=== PATIENT | male | born 1960 | race Caucasian/White ===

== ENCOUNTER 2016-08-06 00:45 | Emergency (ER) | payer BC ==
[~2016-08-06] VITALS: Ht 182.9 cm; Wt 118.0 kg
[~2016-08-06 00:45] MED LIST: BENEMID500 MG PO; LANSOPRAZOLE30 MG PO; LISINOPRIL5 MG PO; NAPROXEN500 MG PO; SUCRALFATE1 GM PO
[2016-08-06 01:49] LABS: HEMATOCRIT 41.2 % (38.0-50.0); MCH 30.6 PG (29.0-34.0); MCHC 35.7 G/DL (30.0-36.0); MCV 85.8 FL (86-99); MEAN PLAT.VOLUME 9.8 uM^3 (9.0-12.4); PLATELET COUNT 196 K/uL (156-360); RBC DIS.WIDTH-CV 12.6 % (11.8-14.6); RBC DIS.WIDTH-SD 38.4 % (39-53); WHITE BLOOD COUNT 5.3 K/uL (4.1-10.2)
[2016-08-06 02:03] LABS: INTER. NORMALIZED RATIO 1.1; PROTHROMBIN TIME 10.9 (9.2-11.2); PTT 28.3 (25-32)
[2016-08-06 03:05] VITALS: BP 96/62
== END 2016-08-06 03:08 | disposition home or self-care (01) ==
LOC: EME 00:45
PROVIDERS: Emergency Medicine
DX: S01.01XA Laceration without foreign body of scalp, initial encounter (principal); S00.03XA Contusion of scalp, initial encounter; F10.920 Alcohol use, unspecified with intoxication, uncomplicated; Z23 Encounter for immunization; W18.30XA Fall on same level, unspecified, initial encounter; I10 Essential (primary) hypertension; Z87.891 Personal history of nicotine dependence
CPT/HCPCS: 70450; 72125; 85027; 85610; 85730; 99281; 99285